=== PATIENT | male | born 1960 | race Two or more races ===

== ENCOUNTER → 2019-01-28 | Outpatient (CLI) | payer OTHER | END | disposition home or self-care (01) | LOC: LAB 15:54 | PROVIDERS: ATTEND Urology | DX: R97.20 Elevated prostate specific antigen [PSA] (principal) | CPT/HCPCS: 84154 ==

== ENCOUNTER → 2019-02-26 | Outpatient (CLI) | payer OTHER | END | disposition home or self-care (01) | LOC: LAB 14:27 | PROVIDERS: ATTEND Urology | DX: N40.0 Benign prostatic hyperplasia without lower urinary tract symptoms (principal) | CPT/HCPCS: 87086 ==

== ENCOUNTER 2019-03-14 13:51 | Inpatient (IN) | payer OTHER ==
[~2019-03-14] VITALS: Ht 160 cm; Wt 74.7 kg
[2019-03-14] MEDS ORDERED: SODIUM CHLORIDE 0.9% 500 ML IVB ONE (14:19)
[2019-03-14 14:30] LABS: Basophils # (auto) 0 uL; Basophils % (auto) 0.3 % (0.0-2.0); Eosinophils # (auto) 0 uL; Eosinophils % (auto) 0.1 % (0.0-7.0); Hematocrit 46.4 % (41.0-53.0); Hemoglobin 15.6 g/dL (13.5-17.5); Lymphocytes # (auto) 1.2 uL; Lymphocytes % (auto) 13.5 % (10.0-50.0); Mean Corpuscular Hemoglobin 28.6 pg (28.0-32.0); Mean Corpuscular Hgb Conc. 33.6 g/dL (32.0-36.0); Mean Corpuscular Volume 85.3 fL (80.0-100.0); Monocytes # (auto) 0.5 uL; Monocytes % (auto) 5.3 % (0.0-12.0); Neutrophils # (auto) 7.4 uL; Neutrophils % (auto) 80.8 % (37.0-80.0); Platelet Count (auto) 349 10^3/uL (140-450); Red Blood Cells 5.44 10^6/uL (4.5-5.90); Red Cell Distribution Width 14.7 % (11.8-14.3); White Blood Cell 9.1 10^3/uL (4.4-10.8)
[2019-03-14] MEDS ORDERED: MORPHINE SULFATE 4 MG/ML SYR/VIAL IV ONE (14:30)
[2019-03-14] MEDS ORDERED: ONDANSETRON HCL 4 MG/2 ML VIAL IV ONE (14:30)
[2019-03-14 14:44] LABS: Albumin 4.3 g/dL (3.4-5.0); Magnesium 2.2 mg/dL (1.6-2.6); Potassium 4.4 mmol/L (3.5-5.1)
[2019-03-14 14:49] LABS: BUN/Creatinine Ratio 12.1; Bilirubin, Total 0.4 mg/dL (0.2-1.0); Calcium 9.4 mg/dL (8.5-10.1); Total Protein 7.8 g/dL (6.4-8.2)
[2019-03-14] MEDS ORDERED: TEMAZEPAM 15 MG CAP PO PRN (18:15)
[2019-03-14] MEDS ORDERED: NITROGLYCERIN 0.4 MG SL TAB SL PRN (18:15)
[2019-03-14] MEDS ORDERED: MORPHINE SULF INJ 2 MG/ML SYRINGE 1ML IV PRN (18:15)
[2019-03-14] MEDS ORDERED: PROMETHAZINE HCL 25 MG/ML 1ML IV PRN (18:15)
[2019-03-14] MEDS ORDERED: ACETAMINOPHEN 500 MG TAB PO PRN (18:15)
[2019-03-14] MEDS: FAMOTIDINE (10MG/ML) 2ML VL IV SCH (18:49)
[2019-03-14] MEDS: SODIUM CHLORIDE 0.9% 1,000 ML IV SCH (18:49)
--- NOTE | 2019-03-14 19:19 | NUR ---
SBAR received from ED by Leila AIKEN.
--- NOTE | 2019-03-14 19:25 | NUR ---
MS admit from [facility] admitted to tele/MS after SBAR received. Patient oriented to ALFREDO BALLARD, RN primary RN, unit, room, bed, and unit policies regarding patient care and visiting hours. Patient weighed by bedscale and encouraged to call if they need something. is at bedside. Plan of care discussed, all questions and concerns addressed, patient verbalized understanding. Patient is A/O x4, skin is intact, on RA, complaints of pain to the RLQ and bilateral flank pain 10/0-10, pain management options discussed will medicate as ordered. Patient is aware of NPO status. IV to the RAC 18g that is saline locked. Call light is within reach side rails up x2, bed is in lowest position, brakes are locked.
[2019-03-14 19:31] VITALS: BP 145/70
[2019-03-14] MEDS: MORPHINE SULFATE 4 MG/ML SYR/VIAL IV PRN (20:07)
[2019-03-14] MEDS ORDERED: OXY20CRT PO (21:27)
[2019-03-14] MEDS ORDERED: ZOLP10TA PO (21:27)
[2019-03-14] MEDS ORDERED: PNEUMOCOCCAL VACC POLYS 25 MCG/0.5 ML VIAL IM ONE (21:30)
[2019-03-14] MEDS: traMADol HCL 50 MG TAB PO PRN (21:44)
[2019-03-15] MEDS: MORPHINE SULFATE 4 MG/ML SYR/VIAL IV PRN ×4 (00:09→12:41)
[2019-03-15 05:00] VITALS: BP 144/77
[2019-03-15] MEDS: FAMOTIDINE (10MG/ML) 2ML VL IV SCH (06:17)
[2019-03-15 06:18] LABS: Potassium 3.8 mmol/L (3.5-5.1)
[2019-03-15] MEDS: SODIUM CHLORIDE 0.9% 1,000 ML IV SCH ×2 (06:18→14:04)
[2019-03-15] MEDS: traMADol HCL 50 MG TAB PO PRN (06:18)
[2019-03-15 06:22] LABS: Albumin 3.6 g/dL (3.4-5.0); BUN/Creatinine Ratio 16.4; Calcium 8.5 mg/dL (8.5-10.1)
[2019-03-15 06:28] LABS: Bilirubin, Total 0.5 mg/dL (0.2-1.0); Total Protein 6.7 g/dL (6.4-8.2)
--- NOTE | 2019-03-15 07:30 | NUR ---
Opening Shift Note Assumed care of patient, awake and alert. No S/S of distress/SOB. Pain reported to bilateral flanks. Pain management options discussed with the patient. Instructed on POC and to call for assist PRN, will continue to monitor for changes Q1hr and PRN.
[2019-03-15 08:00] VITALS: BP 137/81
[2019-03-15 09:00] VITALS: BP 137/81
[2019-03-15 13:00] VITALS: BP 137/78
[2019-03-15 14:13] VITALS: BP 137/78
--- NOTE | 2019-03-15 15:00 | NUR ---
Discharge instructions given as ordered. Encourage to follow up with PMD as instructed. All questions and concerns addressed. Patient verbalized understanding. Needed vaccines given. IV removed with catheter intact, pressure dressing applied. Patient ambulated to vehicle with all personal belongings, accompanied by staff and family member. No distress noted at time of departure.
== END 2019-03-15 15:00 | disposition home or self-care (01) | DRG 392 ==
LOC: ER 13:57 → OVERFLOW 13:58 → EAST 19:28
PROVIDERS: ADMIT Internal Medicine; ATTEND Family Medicine
DX: R10.9 Unspecified abdominal pain (principal); F11.20 Opioid dependence, uncomplicated; N40.0 Benign prostatic hyperplasia without lower urinary tract symptoms; G89.4 Chronic pain syndrome; M54.9 Dorsalgia, unspecified; Z23 Encounter for immunization
CPT/HCPCS: 36415; 74176; 76705; 80053; 82150; 83690; 83735; 85025; 85652; 93005; 96361; 96374; 96375; G0378; J2405; J3490

== ENCOUNTER 2020-01-10 17:57 | Emergency (ER) | payer OTHER ==
[~2020-01-10] VITALS: Ht 160 cm; Wt 72.6 kg
[~2020-01-10 17:57] MED LIST: OXY20CRT PO; ZOLP10TA PO
[2020-01-10 18:12] VITALS: BP 132/81
[2020-01-10] MEDS ORDERED: KETOROLAC TROMETH 60MG/2ML VIAL IM ONE (19:30)
[2020-01-10] MEDS ORDERED: HYDROcodone-ACET 10/325MG TAB PO ONE (20:30)
== END 2020-01-10 21:36 | disposition home or self-care (01) ==
LOC: ER 17:57
DX: B02.9 Zoster without complications (principal); R51 Headache

== ENCOUNTER 2023-08-24 18:55 | Emergency (ER) | payer OTHER ==
[~2023-08-24] VITALS: Ht 160 cm; Wt 70.0 kg
[2023-08-24 19:32] VITALS: BP 135/66; PULSE 69; RESP 16; O2SAT 96
[2023-08-24] MEDS ORDERED: KETOROLAC TROMETH 30 MG/ML 1ML VIAL IM ONE (21:15)
[2023-08-24] MEDS ORDERED: CYCL-837 PO (21:35)
[2023-08-24] MEDS ORDERED: IBUP1TAB5 PO (21:35)
== END 2023-08-24 23:24 | disposition home or self-care (01) ==
LOC: ER 18:55
DX: R51.9 Headache, unspecified (principal); M54.59 Other low back pain; Z79.899 Other long term (current) drug therapy; V43.52XA Car driver injured in collision with other type car in traffic accident, initial encounter; Y93.I9 Activity, other involving external motion; Y92.89 Other specified places as the place of occurrence of the external cause; Y99.8 Other external cause status
CPT/HCPCS: 70450; 71250; 72125; 74176